=== PATIENT | male | born 1985 | race Caucasian/White ===

== ENCOUNTER 2020-11-13 19:41 | Outpatient (REF) | payer OTHER, SELFPAY ==
[2020-11-13 19:01] LABS: Hemoglobin A1C 5.4 % (<5.7)
[2020-11-13 19:05] LABS: ALT 55 U/L (16-63); AST 29 U/L (15-37); Albumin 4.2 g/dL (3.4-5.0); Alkaline Phosphatase 67 U/L (46-116); Anion Gap 9.9 mmol/L (3-11); BUN 26 mg/dL (7-18); Bilirubin, Total 0.4 mg/dL (0.2-1.0); CO2 26.1 mmol/L (21.0-32.0); CREATININE 1.1 mg/dL (0.70-1.30); Calculated LDL 77 mg/dL (<100); Chloride 105 mmol/L (98-107); Cholesterol 139 mg/dL (<200); Glucose 94 mg/dL (74-106); HDL Cholesterol 53 mg/dL (40-60); Potassium 4.4 mmol/L (3.5-5.1); Sodium 141 mmol/L (136-145); Total Protein 7.5 g/dL (6.4-8.2); Triglyceride 46 mg/dL (<150)
[2020-11-16 09:48] LABS: Hepatitis B Surface Ag Negative (Negative)
[2020-11-16 10:05] LABS: Hepatitis C Ab w Rflx HCV PCR Negative (Negative)
[2020-11-16 10:35] LABS: HIV-1/2 Ag & Ab Screen Negative (Negative)
[2020-11-16 11:01] LABS: Syphilis Serology (RPR) Negative (Negative)
== END 2020-11-13 19:42 | disposition home or self-care (01) ==
LOC: NCHCN 19:41
PROVIDERS: Visit Provider Family Medicine
DX: Z00.00 Encounter for general adult medical examination without abnormal findings (principal); Z13.1 Encounter for screening for diabetes mellitus; Z13.220 Encounter for screening for lipoid disorders; Z11.4 Encounter for screening for human immunodeficiency virus [HIV]; Z11.59 Encounter for screening for other viral diseases; G93.2 Benign intracranial hypertension
CPT/HCPCS: 80053; 80061; 86803; 87340; 87389; 83036; 86592

== ENCOUNTER 2022-01-26 17:04 | Outpatient (REF) | payer OTHER, SELFPAY ==
[2022-01-26 16:12] LABS: Abs Immature Grans 0.05 10^3/uL (0.0-0.06); Absolute Basophil Count 0.04 10^3/uL (0.0-0.2); Absolute Eosinophil Count 0.05 10^3/uL (0.0-0.7); Absolute Lymphocyte Count 1.08 10^3/uL (1.2-3.4); Absolute Monocyte Count 1.19 10^3/uL (0.1-0.8); Basophils % 0.3; Eosinophils % 0.4; HGB 14.6 g/dL (13.5-17.5); Immature Grans % 0.4; MCH 30.1 pg (27.0-33.0); MCHC 34.8 % (32.0-36.0); MCV 87 fL (80-95); Monocytes % 8.8; Neutrophils % 82.1; Platelet Count 221 10^3/uL (130-400); RBC 4.85 10^6/uL (4.36-5.78); RDW 12.8 % (11.8-14.1); RDW-SD 40.1 fL; WBC 13.53 10^3/uL (4.4-10.8)
[2022-01-26 16:15] LABS: Absolute Neutrophil Count 11.11 10^3/uL (1.2-6.7)
[2022-01-26 17:00] LABS: ALT 35 U/L (16-63); AST 25 U/L (15-37); Alkaline Phosphatase 54 U/L (46-116); Anion Gap 10.3 mmol/L (3-11); BUN 20 mg/dL (7-18); Bilirubin, Total 0.7 mg/dL (0.2-1.0); CO2 25.7 mmol/L (21.0-32.0); CREATININE 1.2 mg/dL (0.70-1.30); Calcium 9.3 mg/dL (8.5-10.1); Chloride 103 mmol/L (98-107); Glucose 121 mg/dL (74-106); Potassium 4.1 mmol/L (3.5-5.1); Sodium 139 mmol/L (136-145); TSH (W/Ref FT4) 1.73 uIU/mL (0.36-3.74); Total Protein 7.6 g/dL (6.4-8.2)
[2022-01-27 09:26] LABS: Hepatitis B Surface Ag Negative (Negative)
[2022-01-27 10:05] LABS: HIV-1/2 Ag & Ab Screen Negative (Negative)
[2022-01-27 10:53] LABS: Syphilis Serology (RPR) Negative (Negative)
[2022-01-27 14:52] LABS: Chlamydia Result Negative (Negative); GC Result Negative (Negative)
== END 2022-01-26 17:05 | disposition home or self-care (01) ==
LOC: NCHCN 17:04
PROVIDERS: Visit Provider Family Medicine
DX: Z00.00 Encounter for general adult medical examination without abnormal findings (principal); E66.8 Other obesity; Z68.35 Body mass index [BMI] 35.0-35.9, adult; Z11.4 Encounter for screening for human immunodeficiency virus [HIV]; Z11.59 Encounter for screening for other viral diseases; Z11.3 Encounter for screening for infections with a predominantly sexual mode of transmission; R10.31 Right lower quadrant pain; Z13.29 Encounter for screening for other suspected endocrine disorder
CPT/HCPCS: 80053; 87340; 87389; 87491; 87591; 84443; 85025; 86592

== ENCOUNTER 2022-01-27 10:14 | Inpatient (IN) | payer OTHER, SELFPAY ==
--- NOTE | 2022-01-27 10:15 | DI.CT_ITS ---
Exam(s) CT ABDOMEN PELVIS W EXAM: CT ABDOMEN PELVIS W CLINICAL HISTORY: rlq pain TECHNIQUE: COMPARISON: No exams were available for comparison FINDINGS: CT examination of the abdomen and pelvis was performed with bolus infusion of 100 cc of Omnipaque 350 . Images obtained through the lung bases are unremarkable. The liver appears normal with no evidence of a focal mass. Spleen is unremarkable in appearance.. Gallbladder and bile ducts are unremarkable. Pancreas is unremarkable in appearance. Adrenals appear normal bilaterally. Kidneys appear normal with no evidence of renal mass, hydronephrosis, or nephrolithiasis. Unremarkab le bladder. There is no evidence of abdominal or pelvic adenopathy. Abdominal aorta is of normal diameter and no abnormality is seen involving major visceral branches.. There is marked dilatation the appendix which has a thickened wall. There is marked periappendiceal fat edema trace fluid in the paracolic gutter on the right. Slight prominence of right lower quadran t lymph nodes also noted. No evidence of perforation or abscess formation. No evidence obstruction. . No evidence diverticulitis or bowel obstruction. No significant abdominal wall hernia seen. Impression: The appearance is highly suggestive of uncomplicated acute appendicitis . RADIATION DOSE DELIVERED: 1,202.49mGy.cm Total DLP 1,202.49mGy.cm Total DLP !Error CTDIvol DATA REPOSITORY: All CT scans at this facility are submitted to the National Radiology Data Registry (NRDR) Dose Index Registry (DIR) with the [employer] (ACR). RADIATION OPTIMIZATION: All CT scans at this facility use at least one of these dose optimization te chniques: automated exposure control; mA and/or kV adjustment per patient size (includes targeted exa ms where dose is matched to clinical indication); or iterative reconstruction.
[2022-01-27 10:22] VITALS: BP 136/77; PULSE 71; RESP 16; TEMP 36.8; O2SAT 97
[2022-01-27 10:44] LABS: Source Nasal/Nares
[2022-01-27 10:48] LABS: Abs Immature Grans 0.03 10^3/uL (0.0-0.06); Absolute Basophil Count 0.02 10^3/uL (0.0-0.2); Absolute Eosinophil Count 0.13 10^3/uL (0.0-0.7); Absolute Monocyte Count 0.72 10^3/uL (0.1-0.8); Absolute Neutrophil Count 4.56 10^3/uL (1.2-6.7); Basophils % 0.3; Eosinophils % 1.9; HCT 40.9 % (40.0-50.0); HGB 13.9 g/dL (13.5-17.5); Immature Grans % 0.4; Lymphocytes % 21.6; MCH 29.9 pg (27.0-33.0); MCV 88 fL (80-95); MPV 10.2 fL (8.0-11.0); Monocytes % 10.3; Neutrophils % 65.5; Platelet Count 213 10^3/uL (130-400); RBC 4.65 10^6/uL (4.36-5.78); RDW 12.7 % (11.8-14.1); WBC 6.96 10^3/uL (4.4-10.8)
[2022-01-27 11:12] LABS: ALT 29 U/L (16-63); AST 20 U/L (15-37); Albumin 3.7 g/dL (3.4-5.0); Alkaline Phosphatase 52 U/L (46-116); Anion Gap 7.5 mmol/L (3-11); BUN 22 mg/dL (7-18); Bilirubin, Total 0.6 mg/dL (0.2-1.0); CO2 29.5 mmol/L (21.0-32.0); CREATININE 1.1 mg/dL (0.70-1.30); Calcium 8.8 mg/dL (8.5-10.1); Chloride 103 mmol/L (98-107); Glucose 109 mg/dL (74-106); Lipase 118 U/L (73-393); Potassium 4.4 mmol/L (3.5-5.1); Sodium 140 mmol/L (136-145); Total Protein 7.7 g/dL (6.4-8.2)
[2022-01-27 11:20] LABS: COVID-19 PCR Negative (Negative)
[2022-01-27] MEDS: Omnipaque 350 MG/ML 100 ML BTL IV (12:03)
--- NOTE | 2022-01-27 12:12 | ED.GENADUL_ITS ---
Discharge Plan Disposition Patient Disposition: [facility] INPATIENT Condition: Serious Discharge Details Chief Complaint: Abd Prob Clinical Impression: Acute appendicitis Admit Date/Time: 01/27/22 12:47 Admit Provider: Lucina Gaytan Attending Provider: Lucina Gaytan Primary Care Provider: Uvaldo Florentino ED Provider: Arya Santos Discharge Instructions Activity:: minimal Equipment/Supplies:: No Equipment Needed Diet:: As Tolerated Discharge Orders Discharge Orders: Discharge Order (Routine); Ordered 01/27/22 Ordered By: Lucina Gaytan Discharge Data Discharge Date/Time-TO BE ENTERED AT DEPARTURE: 01/27/22 14:04 Medical Decision Making 36-year-old male here with 5 days of of abdominal pain, initially generalized and now more focal in the right lower quadrant over the past few days. Patient is tender in his right lower quadrant. No peritoneal findings. Positive Rovsing's. Concern for acute appendicitis. Outpatient labs were reviewed and leukocytosis noted yesterday. Repeat labs today show improved white count. CT of the abdomen and pelvis to assess for acute surgical pathology was interpreted by radiology: Repeat labs today show improved white count. I spoke with radiologist who noted marked dilatation of the appendix. Will administer broad-spectrum antibiotic coverage with Zosyn. Results were discussed with the patient. Surgical consult was requested. Patient was seen by Dr. Gaytan. Dr. Gaytan to admit the patient. Care transition to surgical service at time of admission. HPI General Mode of arrival: ambulatory . Date/Time Provider Initiated Documentation: 01/27/22 10:15 . Limitations to Documentation: no limitations . Information obtained by: patient . HPI Narrative: 36-year-old male with chief complaint of abdominal pain. Abdominal pain started 5 days ago and has persisted. Patient notes abdominal pain was generalized and then more focal in the right lower quadrant the past couple days. Pain now localized right lower quadrant. Moderate intensity and actually improved. Patient has had associated diaphoresis at night. Related Data Home Medications Medication Instructions Recorded Confirmed multivitamin 1 tab PO DAILY 08/12/21 01/31/22 amoxicillin 875 mg-potassium 1 tab PO BID #10 tabs 01/27/22 01/31/22 clavulanate 125 mg tablet Previous Rx's Medication Instructions Recorded amoxicillin 875 mg-potassium 1 tab PO BID #10 tabs 01/27/22 clavulanate 125 mg tablet Allergies Allergy/AdvReac Type Severity Reaction Status Date / Time No Known Allergies Allergy Verified 01/31/22 09:25 General Stated Complaint: Abd Prob MANJINDER: 3 Review of Systems All systems reviewed & are unremarkable except as noted in HPI and below Constitutional Constitutional: Reports as per HPI Gastrointestinal Gastrointestinal: Reports as per HPI PFSH All Active Problems (Updated 02/01/22 @ 13:39 by Arya Santos MD) Acute appendicitis (Acute) Sialoadenitis of submandibular gland (Acute) Encounter for screening for other viral diseases (Acute) Medical History Asthma, chronic Pseudotumor cerebri Swelling of submandibular gland Surgical History History of placement of ear tubes Family History Other Hypertension Social History Smoking/Tobacco Use Status: Never Smoking risk assessment performed?: Yes Alcohol Intake: current Alcohol Intake frequency: a few times a week Alcohol type: beer and hard liquor Drug use: Never 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 Pets and animals: No Do you feel safe at home: Yes Do you feel safe in your relationship?: No Exam Const General: cooperative and no acute distress HENMT Mouth: moist mucous membranes Eyes Conjunctivae: normal conjunctivae Sclera: normal sclerae Resp Auscultation: clear to auscultation bilaterally, no rales, no rhonchi and no wheezes Cardio Rate: regular rate and not tachycardic GI Palpation: soft, not firm, no guarding, no masses, not rigid and tender in the RLQ and Rovsing's sign positive; with no rebound tenderness Auscultation: normal bowel sounds Skin General skin exam: no rashes or lesions noted Neuro General: patient alert, patient awake and tone normal Extrem General: no edema Psych Appearance: grossly normal Mental Status: mental status grossly normal Course Vital Signs Vital signs: Vital Signs Temperature 36.8 C 01/27/22 10:22 Pulse 71 01/27/22 10:22 Respiratory Rate 16 01/27/22 10:22 Blood Pressure 136/77 01/27/22 10:22 Pulse Oximetry 97 01/27/22 10:22 Temperature 36.8 C 01/27/22 10:22 Pulse 71 01/27/22 10:22 Respiratory Rate 16 01/27/22 10:22 Respiratory Effort Non-Labored 01/27/22 10:29 Blood Pressure 136/77 01/27/22 10:22 Blood Pressure Position Supine 01/27/22 10:22 Pulse Oximetry 97 01/27/22 10:22 Oxygen Delivery Method Room Air 01/27/22 10:22 Oxygen Flow Rate 0 01/27/22 10:22 Lab/Test Results Lab/Test Results: Laboratory Tests Range/Units 01/27/22 01/27/22 01/27/22 10:40 10:40 10:40 WBC (4.4-10.8) 10^3/uL 6.96 RBC (4.36-5.78) 10^6/uL 4.65 Hgb (13.5-17.5) g/dL 13.9 Hct (40.0-50.0) % 40.9 MCV (80-95) fL 88 MCH (27.0-33.0) pg 29.9 MCHC (32.0-36.0) % 34.0 RDW (11.8-14.1) % 12.7 Plt Count (130-400) 10^3/uL 213 MPV (8.0-11.0) fL 10.2 Immature Gran % 0.4 Neutrophils % 65.5 Lymphocytes % 21.6 Monocytes % 10.3 Eosinophils % 1.9 Basophils % 0.3 Nucleated RBC % (0.0-0.3) % 0.0 Absolute Neutrophils (1.2-6.7) 10^3/uL 4.56 Absolute Lymphocytes (1.2-3.4) 10^3/uL 1.50 Absolute Monocytes (0.1-0.8) 10^3/uL 0.72 Absolute Eosinophils (0.0-0.7) 10^3/uL 0.13 Absolute Basophils (0.0-0.2) 10^3/uL 0.02 Sodium (136-145) mmol/L 140 Potassium (3.5-5.1) mmol/L 4.4 Chloride (98-107) mmol/L 103 Carbon Dioxide (21.0-32.0) mmol/L 29.5 Anion Gap (3-11) mmol/L 7.5 BUN (7-18) mg/dL 22 H Creatinine (0.70-1.30) mg/dL 1.1 Estimated GFR/1.73 m2 (mL/min/1.73m2) >= 60.00 Glucose (74-106) mg/dL 109 H Calcium (8.5-10.1) mg/dL 8.8 Total Bilirubin (0.2-1.0) mg/dL 0.6 AST (15-37) U/L 20 ALT (16-63) U/L 29 Alkaline Phosphatase (46-116) U/L 52 Total Protein (6.4-8.2) g/dL 7.7 Albumin (3.4-5.0) g/dL 3.7 Lipase (73-393) U/L 118 COVID-19 Source Nasal/Nares SARS-CoV-2 (PCR) (Negative) Negative PAWSS Have you Been Recently Intoxicated or Drunk Within the Last 30 days?: Yes Have you Ever Experienced Previous Episodes of Alcohol Withdrawal?: No Have you ever Experienced Withdrawal Seizures?: No Have you ever Experienced Delirium Tremens(DT)s?: No Have you ever undergone Alcohol Rehabilitation Treatment (i.e, inpt ot outpatient treatment programs)?: No Have you ever Experienced Blackouts?: No Have you ever Combined Alcohol with other Downers within the last 90 days?: No Have you ever Combined Alcohol with any other Substance of Abuse during the last 90 days?: No Positive Blood Alcohol level on Presentation? [PCS.BAL]: No Evidence of Increased Autonomic Activity (i.e. HR>120, tremor, sweating, agitation, nausea)?: No Result: 1
[2022-01-27] MEDS: PIPERACILLIN/TAZO 4.5 GM in Normal Saline 100 ML IVPB (12:33)
--- NOTE | 2022-01-27 12:56 | W.PM.HP.N ---
Date of service: 01/27/22 Time of Service: 12:56 Assessment and Plan Assessment and plan (1) Acute appendicitis: Status: Acute Assessment and plan: We discussed the pros and cons of surgery versus antibiotics. Current recommendations are in a young healthy individual to have the appendix removed. There is a concern because its been 5 days since he became ill, and it may not be amendable to laparoscopic removal. I did review his CT findings and lab with him today. Again he is feeling much better today. There is no sign of abscess. I do think he should have a laparoscopic appendectomy. We discussed pros and cons of surgery. There is no fecalith. There is no signs of abscess at this point. I still think that I can remove it laparoscopically, based on CT findings.. He is a good candidate for anesthesia. He has not had any prior abdominal surgery. He could certainly have another surgeon at [facility] or seek care at another institution. Patient however is pretty adamant that he does not want surgery and he would like a noninvasive approach to treatment. We discussed the pros and cons of nonsurgical approach including failure and need for surgery, more extensive surgery including laparotomy and possibly cecal resection, with resultant chronic diarrhea; ruptured appendix and need for extensive drainage and IV antibiotic therapy with such associated complications as: C. difficile and catheter infections and thrombosis. Need for laparotomy to remove the appendix. Complications of infection including sepsis and and multiple long-term complications such as bowel obstructions, recurrent abscesses, hernias, need for more extensive surgery including cecal resection,etc. I would advise that he have a laparoscopic appendectomy today. However, he would like to try antibiotics and nonsurgical approach. We will go ahead and admit him for IV antibiotics and see how he responds in the next 24 to 48 hours. At this time he is feeling good. He is having minimal pain in the right lower quadrant. No nausea and vomiting. No fever or chills. He has been tolerating p.o.'s. And his labs today are normal with no shift. - supportive care CT There is marked dilatation the appendix which has a thickened wall.? There is marked periappendiceal fat edema trace fluid in the paracolic gutter on the right.? Slight prominence of right lower quadrant lymph nodes also noted.? No evidence of perforation or abscess formation.? No evidence obstruction..? No evidence diverticulitis or bowel obstruction. History of Present Illness Narrative: Patient is a 36-year-old male. He was in his normal state of good health until Monday. He had diffuse abdominal pain with associated nausea and vomiting. Monday it moved to the right lower quadrant and he was having significant pain. Then Monday it became diffuse again. Today it settled back down into the right lower quadrant. He did see his primary and had lab work done which did show a white count of 13,000. That< coupled with the right lower quadrant pain, him to seek medical attention. He did have a CT scan which does show acute appendicitis with no signs of abscess or perforation. He is having right lower quadrant pain. He is not having a temperature. He had repeat lab Work done today, is normal with no left shift. As medical history is significant for exercise-induced asthma. He had pseudotumor cerebri as a child. He has not had any problems since he was 14. It was treated medically. Today he is having some right lower quadrant pain. But he actually feels much better. It Was actually the elevated white count that prompted him to seek medical attention Review of Systems All systems reviewed & are unremarkable except as noted in HPI and below PFSH All Active Problems (Updated 01/27/22 @ 13:01 by Lucina Gaytan DO) Acute appendicitis (Acute) Sialoadenitis of submandibular gland (Acute) Encounter for screening for other viral diseases (Acute) Medical History Asthma, chronic Pseudotumor cerebri Swelling of submandibular gland Surgical History History of placement of ear tubes Family History Other Hypertension Social History Smoking/Tobacco Use Status: Never Smoking risk assessment performed?: Yes Alcohol Intake: current Alcohol Intake frequency: a few times a week Alcohol type: beer and hard liquor Drug use: Never 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 Pets and animals: No Do you feel safe at home: Yes Do you feel safe in your relationship?: No Meds Allergies and Home Medications Allergies Allergy/AdvReac Type Severity Reaction Status Date / Time No Known Allergies Allergy Verified 08/12/21 15:06 Home Medications Medication Instructions Recorded Confirmed Type multivitamin 1 tab PO DAILY 08/12/21 08/12/21 History amoxicillin 875 mg-potassium 1 tab PO BID #10 tabs 01/27/22 Rx clavulanate 125 mg tablet piperacillin-tazobactam 3.375 3.375 g (56.25 mL) IV Q6H 01/27/22 Rx gram/50 mL dextrose(iso-os) IV appendicitis 3 days #675 mL piggyback (Zosyn) Exam Resp Effort & Inspection: normal respiratory effort and able to speak in complete sentences Auscultation: clear to auscultation bilaterally Cardio Rate: regular rate Rhythm: regular rhythm GI Palpation: soft Other: mild RLQ pain Results Labs Result diagrams: 01/27/22 10:40 01/27/22 10:40 Labs: Laboratory Results - last 24 hr 01/27/22 01/27/22 01/27/22 10:40 10:40 10:40 WBC 6.96 RBC 4.65 Hgb 13.9 Hct 40.9 MCV 88 MCH 29.9 MCHC 34.0 RDW 12.7 Plt Count 213 MPV 10.2 Immature Gran % 0.4 Neutrophils % 65.5 Lymphocytes % 21.6 Monocytes % 10.3 Eosinophils % 1.9 Basophils % 0.3 Nucleated RBC % 0.0 Absolute Neutrophils 4.56 Absolute Lymphocytes 1.50 Absolute Monocytes 0.72 Absolute Eosinophils 0.13 Absolute Basophils 0.02 Sodium 140 Potassium 4.4 Chloride 103 Carbon Dioxide 29.5 Anion Gap 7.5 BUN 22 H Creatinine 1.1 Estimated GFR/1.73 m2 >= 60.00 Glucose 109 H Calcium 8.8 Total Bilirubin 0.6 AST 20 ALT 29 Alkaline Phosphatase 52 Total Protein 7.7 Albumin 3.7 Lipase 118 COVID-19 Source Nasal/Nares SARS-CoV-2 (PCR) Negative Last Vital Signs Temp 36.8 C 01/27/22 10:22 Pulse 71 01/27/22 10:22 Resp 16 01/27/22 10:22 BP 136/77 01/27/22 10:22 Pulse Ox 97 01/27/22 10:22 PAWSS Have you Been Recently Intoxicated or Drunk Within the Last 30 days?: Yes Have you Ever Experienced Previous Episodes of Alcohol Withdrawal?: No Have you ever Experienced Withdrawal Seizures?: No Have you ever Experienced Delirium Tremens(DT)s?: No Have you ever undergone Alcohol Rehabilitation Treatment (i.e, inpt ot outpatient treatment programs)?: No Have you ever Experienced Blackouts?: No Have you ever Combined Alcohol with other Downers within the last 90 days?: No Have you ever Combined Alcohol with any other Substance of Abuse during the last 90 days?: No Positive Blood Alcohol level on Presentation? [PCS.BAL]: No Evidence of Increased Autonomic Activity (i.e. HR>120, tremor, sweating, agitation, nausea)?: No Result: 1
[2022-01-27 14:15] VITALS: BP 123/73; PULSE 69; RESP 19; TEMP 36.6; O2SAT 99
[2022-01-27 14:23] LABS: C-Reactive Protein 8.71 mg/dL (0.0-0.3)
--- NOTE | 2022-01-27 14:29 | W.ANESVAS ---
Midline Placement Date Performed: 01/27/22 Procedure Time: 14:10 Requesting Provider: Lucina Gaytan Procedure Location: Med/Surg Sedation Given (Indicate Dose Given): No Sedation given Patient Mental Status: Awake Sterility: Hand Hygiene, Surgical Cap, Surgical Mask, Sterile Gloves, Sterile Drape/Sheet and Chlorhexidine Laterality: Right Insertion Site: Basilic Midline Device: PowerGlide Pro 18G Catheter Length: 10 cm Midline Procedure Procedure: 1% Lidocaine to skin and subcutaneous tissue with 25g needle and Catheter placed without resistance Dressing: Tegaderm Applied and Statlock Applied Blood Return: Present Flushes: Easily Ultrasound: Sterile probe cover and gel used Ultrasound Image Saved?: No Number of Attempts (See previous attempts in note section): 1 Procedure Tolerated: No Complications and Patient tolerated well Procedure Outcome: Successful Performed By: Shubham Blankenship
--- NOTE | 2022-01-27 14:54 | W.PM.DS.N ---
Date of service: 01/27/22 Time of Service: 14:54 DS: Diagnosis Discharge Diagnosis (1) Acute appendicitis: Status: Acute Discharge Plan Disposition Patient Disposition: HOME Condition: Stable Discharge Details Reason For Visit: Acute Appendicitis Admit Date/Time: 01/27/22 12:47 Admit Provider: Lucina Gaytan Attending Provider: Lucina Gaytan Primary Care Provider: Uvaldo Florentino Hospital Course Hospital Course: see [facility] Home Meds and New Rx's Prescriptions: Continued multivitamin Tablet 1 tab PO DAILY Zosyn in dextrose (iso-osm) 3.375 gram/50 mL piggyback 3.375 g IV Q6H 3 Days Qty: 675 0RF amoxicillin-pot clavulanate 875-125 mg tablet 1 tab PO BID Qty: 10 0RF Rx Instructions: yogurt/probiotic daily for 30 days Discharge Instructions Additional Instructions: -72 hrs of IV Zosyn q6hrs. See pharmacy instructions for running and flush. Flush line after each dose. -10 days of Augmentin for 10 days following IV. 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 Come to access to register. 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 -F/u in Surgery clinic on Monday at 9:30am -soft diet. Push fluids 8-12 glasses a day. -yogurt/probiotic daily for 30 days -minimal activity. REST -Fever >100.5 for more than 6hrs or despite, antipyretics/ vomiting & cannot keep fluids down/overt peritonitis- return to ER Activity:: minimal Equipment/Supplies:: No Equipment Needed Diet:: As Tolerated Discharge Orders Discharge Orders: Discharge Order (Routine); Ordered 01/27/22 Ordered By: Lucina Gaytan DS: Summary Time Spent with Patient providing and/or coordinating discharge services: Less than 30 minutes Status at Discharge Functional status at discharge: independent ambulation Overall status at discharge: patient is progressing back to baseline Mental Status: mental status grossly normal Speech and Movement: speech and movement normal Mood: congruent mood Affect: normal affect Exam Psych Mental Status: mental status grossly normal Speech and Movement: speech and movement normal Mood: congruent mood Affect: normal affect DS: Data Vitals/I&O Vitals and I&O: Vital Signs Temperature 36.6 C 01/27/22 14:15 Pulse 69 01/27/22 14:15 Pulse Rhythm Regular 01/27/22 14:15 Respiratory Rate 19 01/27/22 14:15 Respiratory Effort Non-Labored 01/27/22 14:15 Respiratory Depth Normal 01/27/22 14:15 Respiratory Pattern Normal 01/27/22 14:15 Blood Pressure 123/73 01/27/22 14:15 Blood Pressure Position Supine 01/27/22 10:22 Pulse Oximetry 99 01/27/22 14:15 Oxygen Delivery Method Room Air 01/27/22 14:15 Oxygen Flow Rate 0 01/27/22 14:15 Pain Level 2 01/27/22 14:15 Intake & Output 01/26/22 01/27/22 01/27/22 23:59 11:59 23:59 Intake Total 100 / 100 Balance 100 / 100 Weight 118.841 kg Intake: IV 100 / 100 Other: Urine Appearance Clear Data Completed and Pending Labs on day of discharge: Labs from last 24 hours 01/27/22 01/27/22 01/27/22 12:50 10:42 10:40 WBC RBC Hgb Hct MCV MCH MCHC RDW Plt Count MPV Immature Gran % Neutrophils % Lymphocytes % Monocytes % Eosinophils % Basophils % Nucleated RBC % Absolute Neutrophils Absolute Lymphocytes Absolute Monocytes Absolute Eosinophils Absolute Basophils Sodium Potassium Chloride Carbon Dioxide Anion Gap BUN Creatinine Estimated GFR/1.73 m2 Glucose Calcium Total Bilirubin AST ALT Alkaline Phosphatase C-Reactive Protein 8.71 H Total Protein Albumin Lipase Urine Color Pending Urine Clarity Pending Urine pH Pending Ur Specific [place] Pending Urine Protein Pending Urine Ketones Pending Urine Blood Pending Urine Nitrite Pending Urine Bilirubin Pending Urine Urobilinogen Pending Ur Leukocyte Esterase Pending Urine Glucose Pending COVID-19 Source Pending SARS-CoV-2 (PCR) Pending Add-On Test Request 01/27/22 01/27/22 01/27/22 10:40 10:40 10:40 WBC 6.96 RBC 4.65 Hgb 13.9 Hct 40.9 MCV 88 MCH 29.9 MCHC 34.0 RDW 12.7 Plt Count 213 MPV 10.2 Immature Gran % 0.4 Neutrophils % 65.5 Lymphocytes % 21.6 Monocytes % 10.3 Eosinophils % 1.9 Basophils % 0.3 Nucleated RBC % 0.0 Absolute Neutrophils 4.56 Absolute Lymphocytes 1.50 Absolute Monocytes 0.72 Absolute Eosinophils 0.13 Absolute Basophils 0.02 Sodium Potassium Chloride Carbon Dioxide Anion Gap BUN Creatinine Estimated GFR/1.73 m2 Glucose Calcium Total Bilirubin AST ALT Alkaline Phosphatase C-Reactive Protein Total Protein Albumin Lipase Urine Color Urine Clarity Urine pH Ur Specific [place] Urine Protein Urine Ketones Urine Blood Urine Nitrite Urine Bilirubin Urine Urobilinogen Ur Leukocyte Esterase Urine Glucose COVID-19 Source Nasal/Nares SARS-CoV-2 (PCR) Negative Add-On Test Request Pending 01/27/22 10:40 WBC RBC Hgb Hct MCV MCH MCHC RDW Plt Count MPV Immature Gran % Neutrophils % Lymphocytes % Monocytes % Eosinophils % Basophils % Nucleated RBC % Absolute Neutrophils Absolute Lymphocytes Absolute Monocytes Absolute Eosinophils Absolute Basophils Sodium 140 Potassium 4.4 Chloride 103 Carbon Dioxide 29.5 Anion Gap 7.5 BUN 22 H Creatinine 1.1 Estimated GFR/1.73 m2 >= 60.00 Glucose 109 H Calcium 8.8 Total Bilirubin 0.6 AST 20 ALT 29 Alkaline Phosphatase 52 C-Reactive Protein Total Protein 7.7 Albumin 3.7 Lipase 118 Urine Color Urine Clarity Urine pH Ur Specific [place] Urine Protein Urine Ketones Urine Blood Urine Nitrite Urine Bilirubin Urine Urobilinogen Ur Leukocyte Esterase Urine Glucose COVID-19 Source SARS-CoV-2 (PCR) Add-On Test Request PFSH All Active Problems (Updated 01/27/22 @ 13:01 by Lucina Gaytan DO) Acute appendicitis (Acute) Sialoadenitis of submandibular gland (Acute) Encounter for screening for other viral diseases (Acute) Medical History Asthma, chronic Pseudotumor cerebri Swelling of submandibular gland Surgical History History of placement of ear tubes Family History Other Hypertension Social History Smoking/Tobacco Use Status: Never Smoking risk assessment performed?: Yes Alcohol Intake: current Alcohol Intake frequency: a few times a week Alcohol type: beer and hard liquor Drug use: Never 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
[2022-01-27 22:59] LABS: Lab Add On Test DONE
== END 2022-01-27 15:20 | disposition home or self-care (01) | DRG 395 ==
LOC: ER 10:25 → MS 14:08
PROVIDERS: Admitting Provider Surgery; Emergency Provider Student in an Organized Health Care Education/Training Program; PCP Physician Assistant; Visit Provider Surgery
DX: K35.80 Unspecified acute appendicitis (principal); J45.990 Exercise induced bronchospasm
CPT/HCPCS: 36415; 80053; 83690; 87635; 96365; 99285; 74177; 81003; 85025; 86140; J2543; J3490

== ENCOUNTER 2022-01-29 09:21 | Outpatient (REF) | payer OTHER, SELFPAY ==
[2022-01-29 09:39] LABS: Abs Immature Grans 0.03 10^3/uL (0.0-0.06); Absolute Basophil Count 0.04 10^3/uL (0.0-0.2); Absolute Eosinophil Count 0.18 10^3/uL (0.0-0.7); Absolute Lymphocyte Count 1.31 10^3/uL (1.2-3.4); Absolute Neutrophil Count 2.75 10^3/uL (1.2-6.7); Basophils % 0.8; Eosinophils % 3.7; HCT 42.4 % (40.0-50.0); HGB 14.1 g/dL (13.5-17.5); Immature Grans % 0.6; Lymphocytes % 27.2; MCHC 33.3 % (32.0-36.0); MCV 87 fL (80-95); MPV 10.2 fL (8.0-11.0); Monocytes % 10.4; Neutrophils % 57.3; Platelet Count 224 10^3/uL (130-400); RBC 4.86 10^6/uL (4.36-5.78); RDW 12.3 % (11.8-14.1); RDW-SD 39.5 fL; WBC 4.81 10^3/uL (4.4-10.8)
[2022-01-29 09:50] LABS: C-Reactive Protein 2.57 mg/dL (0.0-0.3)
== END 2022-01-29 09:22 | disposition home or self-care (01) ==
LOC: LBO 09:21
PROVIDERS: PCP Physician Assistant; Visit Provider Surgery
DX: K35.80 Unspecified acute appendicitis (principal); Z79.2 Long term (current) use of antibiotics
CPT/HCPCS: 36415; 85025; 86140

== ENCOUNTER 2022-05-20 15:56 | Outpatient (REF) | payer OTHER, SELFPAY ==
[2022-05-20 19:14] LABS: CREATININE 1.2 mg/dL (0.70-1.30); Estimated GFR 80.88 (mL/min/1.73m2)
[2022-05-23 09:57] LABS: Hepatitis B Surface Ag Negative (Negative)
[2022-05-23 10:30] LABS: HIV-1/2 Ag & Ab Screen Negative (Negative)
[2022-05-23 12:17] LABS: Syphilis Serology (RPR) Negative (Negative)
[2022-05-23 13:48] LABS: Chlamydia Result Negative (Negative); GC Result Negative (Negative)
== END 2022-05-20 15:57 | disposition home or self-care (01) ==
LOC: NCHCN 15:56
PROVIDERS: PCP Physician Assistant; Visit Provider Family Medicine
DX: Z00.00 Encounter for general adult medical examination without abnormal findings (principal); Z11.3 Encounter for screening for infections with a predominantly sexual mode of transmission; Z11.59 Encounter for screening for other viral diseases; Z11.4 Encounter for screening for human immunodeficiency virus [HIV]
CPT/HCPCS: 87340; 87389; 87491; 87591; 82565; 86592

== ENCOUNTER 2022-11-16 12:29 | Outpatient (REF) | payer OTHER, SELFPAY ==
[2022-11-16 17:33] LABS: ALT 41 U/L (16-63); AST 31 U/L (15-37); Albumin 4.1 g/dL (3.4-5.0); Alkaline Phosphatase 65 U/L (46-116); Anion Gap 6.8 mmol/L (3-11); BUN 17 mg/dL (7-18); Bilirubin, Total 0.7 mg/dL (0.2-1.0); CO2 28.2 mmol/L (21.0-32.0); CREATININE 1.1 mg/dL (0.70-1.30); Calcium 8.9 mg/dL (8.5-10.1); Chloride 105 mmol/L (98-107); Estimated GFR 89.22 (mL/min/1.73m2); Glucose 102 mg/dL (74-106); Potassium 4.4 mmol/L (3.5-5.1); Sodium 140 mmol/L (136-145); Total Protein 7.6 g/dL (6.4-8.2)
[2022-11-18 10:58] LABS: HIV-1/2 Ag & Ab Screen Negative (Negative)
== END 2022-11-16 12:30 | disposition home or self-care (01) ==
LOC: NCHCN 12:29
PROVIDERS: PCP Family Medicine; Visit Provider Family Medicine
DX: Z51.81 Encounter for therapeutic drug level monitoring (principal)
CPT/HCPCS: 80053; 87389

== ENCOUNTER 2023-03-30 16:06 | Outpatient (REF) | payer OTHER, SELFPAY ==
[2023-04-03 10:22] LABS: Syphilis Serology (RPR) Negative (Negative)
[2023-04-03 11:11] LABS: HIV-1/2 Ag & Ab Screen Negative (Negative)
[2023-04-03 13:04] LABS: HBs Antibody, Quant 426.8 mIU/mL (See Note); Hepatitis B Surface Ab Positive (See Note)
[2023-04-03 13:16] LABS: Hepatitis B Surface Ag Negative (Negative)
[2023-04-03 13:51] LABS: Hep B Core Antibody Negative (Negative)
== END 2023-03-30 16:07 | disposition home or self-care (01) ==
LOC: NCHCN 16:06
PROVIDERS: PCP Family Medicine; Visit Provider Family Medicine
DX: Z00.00 Encounter for general adult medical examination without abnormal findings (principal); Z11.59 Encounter for screening for other viral diseases; Z11.3 Encounter for screening for infections with a predominantly sexual mode of transmission
CPT/HCPCS: 86704; 86706; 87340; 87389; 86592